=== PATIENT | female | born 1935 | race Caucasian/White ===

== ENCOUNTER → 2017-07-24 | Outpatient (CLI) | payer MEDICARE | END | disposition home or self-care (01) | LOC: CFH 08:03 | PROVIDERS: ATTEND Specialist | DX: N63.20 Unspecified lump in the left breast, unspecified quadrant (principal); N63.10 Unspecified lump in the right breast, unspecified quadrant; R92.8 Other abnormal and inconclusive findings on diagnostic imaging of breast; F02.80 Dementia in other diseases classified elsewhere, unspecified severity, without behavioral disturbance, psychotic disturbance, mood disturbance, and anxiety | CPT/HCPCS: 76642; 77066 ==

== ENCOUNTER → 2017-08-16 | Outpatient (CLI) | payer MEDICARE ==
[~2017-08-16] MED LIST: REGADENOSON 0.4 MG/5 ML SYRINGE ONE
== END | disposition home or self-care (01) ==
LOC: CFH 07:35
PROVIDERS: ATTEND Internal Medicine Cardiovascular Disease
DX: I10 Essential (primary) hypertension (principal); I25.10 Atherosclerotic heart disease of native coronary artery without angina pectoris
CPT/HCPCS: 78452; 93017; 93306; A9502; J2785

== ENCOUNTER → 2017-12-31 | Outpatient (CLI) | payer MEDICARE ==
[2017-12-31 12:49] LABS: BASOPHILS # (AUTO) 0.04 x10^3/uL (0-0.1); BASOPHILS % (AUTO) 0 % (0-1); EOSINOPHILS # (AUTO) 0.25 x10^3/uL (0-0.4); EOSINOPHILS % (AUTO) 2 % (1-7); LYMPHOCYTES # (AUTO) 1.92 x10^3/uL (1-3.4); LYMPHOCYTES % (AUTO) 16 % (22-44); MD NO; MEAN CORPUSCULAR HGB CONC 33.2 g/dL (32.4-35.8); MEAN CORPUSCULAR VOLUME 93.2 fL (80-100); MEAN PLATELET VOLUME 7.9 fL (7.4-10.4); MONOCYTES # (AUTO) 0.49 x10^3/uL (0.2-0.8); MONOCYTES % (AUTO) 4 % (2-9); NEUTROPHILS # (AUTO) 9.18 x10^3/uL (1.8-6.8); NEUTROPHILS % (AUTO) 77 % (42-75); PLATELET COUNT 344 x10^3/uL (130-400); RED BLOOD COUNT 4.22 x10^6/uL (3.82-5.3)
[2017-12-31 12:56] LABS: ALBUMIN 3.3 g/dL (3.4-5.0); ANION GAP 4 mmol/L (5-15); CALCIUM 8.7 mg/dL (8.5-10.1); CHLORIDE 108 mmol/L (98-107)
[2017-12-31 13:01] LABS: ALANINE AMINOTRANSFERASE 21 U/L (12-78); ALKALINE PHOSPHATASE 56 U/L (45-117); BILIRUBIN,TOTAL 0.5 mg/dL (0.2-1.0); CREATININE 0.75 mg/dL (0.55-1.02); TOTAL PROTEIN 6.6 g/dL (6.4-8.2)
== END | disposition home or self-care (01) ==
LOC: CFH 08:50
PROVIDERS: ATTEND Specialist
DX: G31.9 Degenerative disease of nervous system, unspecified (principal); G30.1 Alzheimer's disease with late onset; Z79.899 Other long term (current) drug therapy
CPT/HCPCS: 36415; 70450; 80053; 85025

== ENCOUNTER 2018-03-27 11:51 | Inpatient (IN) | payer MEDICARE ==
[~2018-03-27] VITALS: Ht 152.4 cm; Wt 57.3 kg
[2018-03-27] MEDS ORDERED: SODIUM CHLORIDE 0.9% 1,000ML IVBOLUS ONE (12:00)
[2018-03-27 12:19] LABS: BASOPHILS # (AUTO) 0.03 x10^3/uL (0-0.1); BASOPHILS % (AUTO) 0 % (0-1); EOSINOPHILS # (AUTO) 0.17 x10^3/uL (0-0.4); EOSINOPHILS % (AUTO) 2 % (1-7); LYMPHOCYTES # (AUTO) 1.53 x10^3/uL (1-3.4); LYMPHOCYTES % (AUTO) 15 % (22-44); MD NO; MEAN CORPUSCULAR HEMOGLOBIN 31.7 pg (27.0-34.8); MEAN CORPUSCULAR HGB CONC 33.2 g/dL (32.4-35.8); MEAN CORPUSCULAR VOLUME 95.5 fL (80-100); MEAN PLATELET VOLUME 7.2 fL (7.4-10.4); MONOCYTES # (AUTO) 0.36 x10^3/uL (0.2-0.8); MONOCYTES % (AUTO) 4 % (2-9); NEUTROPHILS % (AUTO) 79 % (42-75); PLATELET COUNT 352 x10^3/uL (130-400); RED BLOOD COUNT 4.08 x10^6/uL (3.82-5.3); RED CELL DISTRIBUTION WIDTH 14.7 % (9.6-15.2)
[2018-03-27] MEDS ORDERED: PLEASE ENTER ALLERGIES MC SCH (12:30)
[2018-03-27] MEDS ORDERED: PLEASE ENTER HEIGHT AND WEIGHT MC SCH (12:30)
[2018-03-27 12:32] LABS: ALBUMIN 2.9 g/dL (3.4-5.0); ANION GAP 6 mmol/L (5-15); CALCIUM 8.8 mg/dL (8.5-10.1); CHLORIDE 109 mmol/L (98-107); CREATININE 0.73 mg/dL (0.55-1.02)
[2018-03-27 12:35] LABS: TROPONIN I < 0.015 ng/mL (0.000-0.045)
[2018-03-27] MEDS ORDERED: ENALAPRILAT 1.25 MG/ML, 2ML IVPush PRN (14:30)
[2018-03-27] MEDS ORDERED: GLUCAGON 1 MG IM PRN (14:30)
[2018-03-27] MEDS ORDERED: ENOXAPARIN 40 MG/0.4 ML SQ SCH (14:30)
[2018-03-27] MEDS ORDERED: ACETAMINOPHEN 325 MG TABLET PO PRN (14:30)
[2018-03-27] MEDS ORDERED: DEXTROSE 4 GM TAB.CHEW PO PRN (14:30)
[2018-03-27] MEDS ORDERED: DEXTROSE 50%, 50ML SYRINGE IVPush PRN (14:30)
[2018-03-27] MEDS ORDERED: DOCUSATE 100 MG CAPSULE PO PRN (14:30)
[2018-03-27] MEDS ORDERED: ONDANSETRON ODT 4 MG PO PRN (14:30)
[2018-03-27] MEDS ORDERED: ONDANSETRON 2MG/ML, 2ML IVPush PRN (14:30)
[2018-03-27 14:42] LABS: THYROID STIMULATING HORMONE 4.1 mIU/L (0.358-3.740)
[2018-03-27 15:07] VITALS: BP 164/73
[2018-03-27 16:21] LABS: CULTURE INDICATED? YES; MICROSCOPIC AUTO
[2018-03-27] MEDS ORDERED: ERGOCALCIFEROL 50,000 UNIT CAPSULE PO ONE (17:00)
[2018-03-27] MEDS ORDERED: METHOTREXATE 2.5 MG TABLET PO SCH (17:00)
[2018-03-27] MEDS ORDERED: METHOTREXATE 2.5 MG TABLET PO ONE (17:30)
[2018-03-27] MEDS ORDERED: METOPROLOL TARTRATE 50 MG TABLET PO SCH (18:00)
[2018-03-27 18:13] LABS: TROPONIN I < 0.015 ng/mL (0.000-0.045)
[2018-03-27 19:02] VITALS: BP 165/77
[2018-03-27] MEDS: D5%-0.45% NACL 1,000 ML IV SCH (20:07)
[2018-03-27] MEDS: SODIUM CHLORIDE FLUSH 10ML SYR IVF SCH (20:08)
[2018-03-27] MEDS ORDERED: HYDROcodone/APAP 5/325 TABLET PO ONE (21:00)
[2018-03-27] MEDS ORDERED: TRAZODONE 150MG TABLET PO SCH (21:00)
[2018-03-27] MEDS ORDERED: ATORVASTATIN 20 MG TABLET PO SCH (21:00)
[2018-03-27] MEDS ORDERED: OMNIPAQUE 350 MG/ML, 100ML BOTTLE ONE (21:38)
[2018-03-27] MEDS ORDERED: HEPARIN 25,000 UNITS/500ML PMX 500 ML IV PRN (23:30)
[2018-03-27] MEDS ORDERED: HEPARIN 5,000 UNITS/ML, 1ML IV ONE (23:30)
[2018-03-27] MEDS ORDERED: HEPARIN 5,000 UNITS/ML, 1ML IV PRN (23:30)
[2018-03-28] MEDS ORDERED: TRAZODONE 50MG TABLET PO ONE
[2018-03-28] MEDS ORDERED: PRED5TAB19 PO (01:07)
[2018-03-28] MEDS ORDERED: METO50TA6 PO (01:11)
[2018-03-28] MEDS ORDERED: ATOR20TA9 PO (01:12)
[2018-03-28] MEDS ORDERED: METH2.5T PO (01:14)
[2018-03-28] MEDS ORDERED: HYDR-3240 PO (01:15)
[2018-03-28] MEDS ORDERED: CHOL-1 PO (01:18)
[2018-03-28] MEDS ORDERED: ALEN70TA3 PO (01:19)
[2018-03-28] MEDS ORDERED: TRAZ150T62 PO (01:23)
[2018-03-28] MEDS ORDERED: DONE10TA56 PO (01:23)
[2018-03-28] MEDS ORDERED: OLAN2.5T10 PO (01:23)
[2018-03-28 03:38] VITALS: BP 159/78
[2018-03-28 05:52] LABS: BASOPHILS # (AUTO) 0.06 x10^3/uL (0-0.1); BASOPHILS % (AUTO) 1 % (0-1); EOSINOPHILS # (AUTO) 0.26 x10^3/uL (0-0.4); EOSINOPHILS % (AUTO) 3 % (1-7); LYMPHOCYTES # (AUTO) 3.07 x10^3/uL (1-3.4); LYMPHOCYTES % (AUTO) 34 % (22-44); MD NO; MEAN CORPUSCULAR HEMOGLOBIN 31.6 pg (27.0-34.8); MEAN CORPUSCULAR HGB CONC 33.6 g/dL (32.4-35.8); MEAN CORPUSCULAR VOLUME 94.1 fL (80-100); MEAN PLATELET VOLUME 7.2 fL (7.4-10.4); MONOCYTES # (AUTO) 0.52 x10^3/uL (0.2-0.8); MONOCYTES % (AUTO) 6 % (2-9); NEUTROPHILS # (AUTO) 5.12 x10^3/uL (1.8-6.8); NEUTROPHILS % (AUTO) 57 % (42-75); PLATELET COUNT 329 x10^3/uL (130-400); RED BLOOD COUNT 3.95 x10^6/uL (3.82-5.3)
[2018-03-28 06:03] LABS: CHLORIDE 110 mmol/L (98-107)
[2018-03-28 06:04] LABS: ALBUMIN 2.7 g/dL (3.4-5.0); ANION GAP 10 mmol/L (5-15); CALCIUM 8.5 mg/dL (8.5-10.1)
[2018-03-28 06:07] LABS: ALANINE AMINOTRANSFERASE 16 U/L (12-78); ALKALINE PHOSPHATASE 60 U/L (45-117); BILIRUBIN,TOTAL 0.5 mg/dL (0.2-1.0); CHOL/HDL RATIO 3.4; CHOLESTEROL, TOTAL 148 mg/dL (140-239); HDL CHOL % 29 % (28-40); HDL CHOLESTEROL (DIRECT) 43 mg/dL (40-60); LDL CHOLESTEROL,CALCULATED 81 mg/dL (54-169); LDL/HDL RATIO 1.9 (0.5-3.0); TOTAL PROTEIN 6.2 g/dL (6.4-8.2); TRIGLYCERIDES 120 mg/dL (50-200); VLDL CHOLESTEROL 24 mg/dL (0-25)
[2018-03-28] MEDS ORDERED: DONEPEZIL 10 MG TABLET PO SCH (09:00)
[2018-03-28] MEDS ORDERED: METOPROLOL TARTRATE 50 MG TABLET PO SCH (09:00)
[2018-03-28] MEDS ORDERED: OLANZAPINE 2.5 MG TABLET PO SCH (09:00)
[2018-03-28] MEDS: SODIUM CHLORIDE FLUSH 10ML SYR IVF SCH (09:00)
[2018-03-28 09:19] VITALS: BP 151/71
[2018-03-28] MEDS: D5%-0.45% NACL 1,000 ML IV SCH (09:23)
[2018-03-28] MEDS ORDERED: ALENDRONATE SODIUM 70 MG PO SCH (10:00)
[2018-03-28] MEDS ORDERED: METHOTREXATE 2.5 MG TABLET PO SCH (10:00)
[2018-03-28] MEDS ORDERED: ERGOCALCIFEROL 50,000 UNIT CAPSULE PO SCH (10:00)
[2018-03-28] MEDS ORDERED: HYDROcodone/APAP 5/325 TABLET PO PRN (10:00)
[2018-03-28] MEDS ORDERED: CHOLECALCIFEROL MC SCH ×2 (10:30)
[2018-03-28 11:02] LABS: FREE T4 (FREE THYROXINE) 1.01 ng/dL (0.76-1.46); THYROID STIMULATING HORMONE 5.03 mIU/L (0.358-3.740)
[2018-03-28 12:25] VITALS: BP 148/80
[2018-03-28] MEDS ORDERED: SERT50TA5 PO (13:09)
[2018-03-28] MEDS ORDERED: MIRT45TA6 PO (13:09)
[2018-03-28] MEDS ORDERED: MIRTAZAPINE 15 MG TABLET PO SCH ×2 (13:30→21:00)
[2018-03-28] MEDS ORDERED: TRAZODONE 50MG TABLET ONE (13:55)
[2018-03-28] MEDS ORDERED: MIRTAZAPINE 15 MG TABLET ONE (13:56)
[2018-03-28] MEDS ORDERED: FAMOTIDINE 20 MG TABLET PO PRN (14:00)
[2018-03-28] MEDS ORDERED: HALOPERIDOL 0.5 MG TABLET PO PRN (15:30)
[2018-03-28] MEDS ORDERED: TRAZODONE 50MG TABLET PO SCH (16:00)
[2018-03-28] MEDS ORDERED: METO25TA35 PO (17:07)
[2018-03-28] MEDS ORDERED: APIX5TAB PO (17:07)
[2018-03-28] MEDS ORDERED: METOPROLOL TARTRATE 25 MG TABLET PO SCH (18:00)
[2018-03-28] MEDS ORDERED: SERTRALINE 50MG TABLET PO SCH (21:00)
[2018-03-28] MEDS ORDERED: TRAZODONE 150MG TABLET PO SCH (21:00)
[2018-03-28] MEDS ORDERED: APIXABAN 5 MG TABLET PO SCH (21:00)
[2018-03-28] MEDS ORDERED: DONEPEZIL HCL 10 MG PO SCH (21:00)
[2018-03-28] MEDS ORDERED: TEMPLATE NON-FORMULARY MED. (Atorvastatin Calcium** 20 MG) PO SCH (21:00)
[2018-03-29] MEDS ORDERED: MULTIVITAMIN 1 TABLET PO SCH (09:00)
[2018-03-29] MEDS ORDERED: OLANZAPINE 2.5 MG PO SCH (09:00)
[2018-04-03] MEDS ORDERED: ALENDRONATE 70 MG TABLET PO SCH (06:30)
== END 2018-03-28 17:56 | disposition home or self-care (01) | DRG 175 ==
LOC: ED 13:04 → UNDOADMOB 13:05 → INTOOBSV 13:05 → EDIP 13:05 → ED 13:11 → OBSVTOIN 14:10 → EDIP 14:10 → 5SO 15:04
PROVIDERS: ADMIT Internal Medicine; ATTEND Internal Medicine
DX: I26.99 Other pulmonary embolism without acute cor pulmonale (principal); J96.01 Acute respiratory failure with hypoxia; F02.81 Dementia in other diseases classified elsewhere, unspecified severity, with behavioral disturbance; G90.8 Other disorders of autonomic nervous system; R00.1 Bradycardia, unspecified; I25.10 Atherosclerotic heart disease of native coronary artery without angina pectoris; Z95.5 Presence of coronary angioplasty implant and graft; K30 Functional dyspepsia; M85.80 Other specified disorders of bone density and structure, unspecified site; I10 Essential (primary) hypertension; L40.50 Arthropathic psoriasis, unspecified; I77.819 Aortic ectasia, unspecified site; G47.00 Insomnia, unspecified; G89.29 Other chronic pain; R26.81 Unsteadiness on feet; E86.0 Dehydration; G30.1 Alzheimer's disease with late onset; Z82.49 Family history of ischemic heart disease and other diseases of the circulatory system; Z84.89 Family history of other specified conditions; Z88.6 Allergy status to analgesic agent
CPT/HCPCS: 36415; 71045; 71275; 74018; 80048; 80053; 80061; 81001; 82040; 83735; 84439; 84443; 84484; 85025; 85379; 85520; 87086; 93005; 93306; J1644; J1650; J8610; Q9967; G0378; J7030

== ENCOUNTER → 2018-10-02 | Outpatient (CLI) | payer MEDICARE ==
[~2018-10-02] MED LIST changes: +ALEN70TA3 PO; +APIX5TAB PO; +ATOR20TA37 PO; +CHOL-1 PO; +DONE10TA56 PO; +HYDR-3240 PO; +METH2.5T PO; +METO25TA35 PO; +METO50TA6 PO; +MIRT45TA57 PO; +OLAN2.5T10 PO; +OMNIPAQUE 350 MG/ML, 100ML BOTTLE ONE; +PRED5TAB19 PO; -REGADENOSON 0.4 MG/5 ML SYRINGE ONE; +SERT50TA28 PO; +TRAZ150T62 PO
== END | disposition home or self-care (01) ==
LOC: CFH 13:07
PROVIDERS: ATTEND Family Medicine
DX: I77.819 Aortic ectasia, unspecified site (principal); L98.8 Other specified disorders of the skin and subcutaneous tissue
CPT/HCPCS: 71275; Q9967

== ENCOUNTER 2018-10-29 08:34 | Emergency (ER) | payer MEDICARE ==
[~2018-10-29] VITALS: Ht 160 cm; Wt 51.1 kg
[~2018-10-29 08:34] MED LIST changes: -OMNIPAQUE 350 MG/ML, 100ML BOTTLE ONE
--- NOTE | 2018-10-29 09:04 | NUR ---
Pt returned to room from [facility] on [facility] with spouse at bedside. NADN. Both bed rails up for safety measures.
[2018-10-29 09:05] LABS: BASOPHILS # (AUTO) 0.03 x10^3/uL (0-0.1); BASOPHILS % (AUTO) 0 % (0-1); EOSINOPHILS # (AUTO) 0.11 x10^3/uL (0-0.4); EOSINOPHILS % (AUTO) 1 % (1-7); LYMPHOCYTES # (AUTO) 1.13 x10^3/uL (1-3.4); LYMPHOCYTES % (AUTO) 14 % (22-44); MD NO; MEAN CORPUSCULAR HEMOGLOBIN 30.9 pg (27.0-34.8); MEAN CORPUSCULAR HGB CONC 32.6 g/dL (32.4-35.8); MEAN CORPUSCULAR VOLUME 94.8 fL (80-100); MEAN PLATELET VOLUME 7.5 fL (7.4-10.4); MONOCYTES # (AUTO) 0.56 x10^3/uL (0.2-0.8); MONOCYTES % (AUTO) 7 % (2-9); NEUTROPHILS # (AUTO) 6.11 x10^3/uL (1.8-6.8); NEUTROPHILS % (AUTO) 77 % (42-75); PLATELET COUNT 284 x10^3/uL (130-400); RED BLOOD COUNT 3.66 x10^6/uL (3.82-5.3); RED CELL DISTRIBUTION WIDTH 15.3 % (9.6-15.2)
[2018-10-29 09:17] LABS: ALBUMIN 2.9 g/dL (3.4-5.0); CALCIUM 8.6 mg/dL (8.5-10.1); CREATININE 0.83 mg/dL (0.55-1.02)
[2018-10-29] MEDS ORDERED: Acetaminophen PO (09:20)
[2018-10-29] MEDS ORDERED: PRED5TAB PO (09:20)
[2018-10-29] MEDS ORDERED: ALEN70TA6 PO (09:20)
[2018-10-29] MEDS ORDERED: MIRT45TA61 PO (09:20)
[2018-10-29] MEDS ORDERED: metoprolol PO (09:20)
[2018-10-29] MEDS ORDERED: TRAZODONE (09:20)
[2018-10-29] MEDS ORDERED: MULT-90 PO (09:20)
[2018-10-29] MEDS ORDERED: PRED1TAB PO (09:20)
[2018-10-29] MEDS ORDERED: LEVO25TA4 PO (09:20)
[2018-10-29] MEDS ORDERED: Trazadone PO (09:20)
[2018-10-29 09:21] LABS: TROPONIN I < 0.015 ng/mL (0.000-0.045)
--- NOTE | 2018-10-29 09:30 | NUR ---
Pt transported on gurney to imaging. LAVERNE. Pt's spouse followed pt at bedside.
[2018-10-29 09:32] LABS: ANION GAP 5 mmol/L (5-15)
[2018-10-29 09:33] LABS: CHLORIDE 112 mmol/L (98-107)
--- NOTE | 2018-10-29 09:34 | NUR ---
LATE NOTE BENNY FOR 0841: Pt presents to ED by EMS from home after pt had syncopal event without fall or trauma wittnessed by pt's spouse. Pt is AOX1 at baseline with history of dementia. Pt resting on gurney with NADN. Pt connected to NIBP, continous pulse ox, and advertising account representative. Both bedrails up for safety measures. Call light within reach. Pt recieved 300 mL of NS prior to arrival from EMS for hypotension witnessed by EMS at 77/40 to 97/50. Per EMS, "patient's spouse said he noticed she had a non-productive cough starting last night." Pt denies pain, sob, cp, n/v/d, dizziness, light headedness, or trauma. Pt unable to recall why she is at the ED. Pt alert, awake, responsive to voice, and oriented to self. Per EMS, this is her baseline. Pt has 18 g PIV in right forearm placed prior to arrival to ED.
[2018-10-29 09:46] LABS: FREE T4 (FREE THYROXINE) 0.99 ng/dL (0.76-1.46)
--- NOTE | 2018-10-29 09:48 | NUR ---
Pt spouse states, "usually after she takes her morning meds like her Trazadone for anxiety, she falls asleep. I wonder if she fell asleep while standing up. She did fall and hit her head on a metal office chair. She was standing up and fell backwards." Pt has no observable trauma to head, face, or scalp. No lacerations or skin tears observed. No ecchymosis observed. Discussed with pt and spouse about toileting at bedside in commode. Pt and spouse state verbal understanding.
[2018-10-29 10:17] LABS: MICROSCOPIC NOT IND
--- NOTE | 2018-10-29 10:18 | NUR ---
LÁZARO RN: PT CURRENTLY RESTING [facility]. NAD NOTED. SKIN PWD. RESP EVEN AND UNLABORED. AT BEDSIDE. PT AND AWARE WE ARE WAITING FOR LAB RESULTS. PT DENIES PAIN/NEEDS AT THIS TIME. PT ON CONT BP, CARDIAC AND O2 MONITORS. CALL LIGHT WITHIN REACH.
[2018-10-29 10:26] LABS: CULTURE INDICATED? NO
--- NOTE | 2018-10-29 11:18 | NUR ---
LÁZARO RN: PT CURRENTLY RESTING IN [facility]. NAD NOTED AT THIS TIME. SKIN PWD. RESP EVEN AND EQUAL. AT BEDSIDE. PT ON CONT BP, CARDIAC AND O2 MONITORS. CALL LIGHT WITHIN REACH. WILL CONT TO MONITOR PT.
--- NOTE | 2018-10-29 11:55 | NUR ---
Provided report to STACY Hand. All questions answered. Peace silverman care of pt.
--- NOTE | 2018-10-29 11:57 | NUR ---
RECEIVED REPORT FROM LOUANN KUMAR. DR. IRWIN AT BEDSIDE FOR RECHECK, DISCUSSING DISCHARGE POC WITH PT AND PT SPOUSE. AWAITING CHART AND DISCHARGE PAPERS FROM [facility].
[2018-10-29 12:35] VITALS: BP 127/67
== END 2018-10-29 12:49 | disposition home or self-care (01) ==
LOC: ED 10:43
DX: R55 Syncope and collapse (principal); I10 Essential (primary) hypertension; I25.10 Atherosclerotic heart disease of native coronary artery without angina pectoris
CPT/HCPCS: 36415; 70450; 71046; 80048; 81003; 82040; 84439; 84443; 84484; 85025; 93005; 99284

== ENCOUNTER 2020-01-15 20:42 | Inpatient (IN) | payer MEDICARE ==
[~2020-01-15] VITALS: Ht 149.9 cm; Wt 56.1 kg
[~2020-01-15 20:42] MED LIST changes: +ALEN70TA6 PO; +Acetaminophen PO; +LEVO25TA4 PO; +MIRT45TA61 PO; +MULT-90 PO; +PRED1TAB19 PO; +PRED5TAB PO; +TRAZODONE; +Trazadone PO; +metoprolol PO
[2020-01-15] MEDS ORDERED: AMIODARONE 50 MG/ML, 3ML ONE (20:57)
[2020-01-15] MEDS ORDERED: FILTER 0.22 MICRON IV PRN (21:00)
[2020-01-15] MEDS ORDERED: AMIODARONE 450 MG in DEXTROSE 5% 241 ML IV PRN (21:00)
[2020-01-15] MEDS ORDERED: SODIUM CHLORIDE FLUSH 10ML SYR IVF ONE (21:00)
--- NOTE | 2020-01-15 21:03 | NUR ---
Pt BIB [facility] for bigeminy and approx 30 sec run of Vtach. reports that pt was at [employer] earlier when pt began having chest pain, SOB, and stomach pains. called ambulance from home. Pt arrives to ED A/O X 1, which is baseline. Pt does not appear in distress at this time. MD at bedside, EKG complete. Placed on monitor and Zoll. Pt does not report CP or SOB at this time, calm and cooperative. VSWNL. Pharmacy notified of need for Amio gtt.
[2020-01-15 21:12] LABS: BASOPHILS # (AUTO) 0.03 x10^3/uL (0-0.1); BASOPHILS % (AUTO) 0 % (0-1); EOSINOPHILS # (AUTO) 0.15 x10^3/uL (0-0.4); EOSINOPHILS % (AUTO) 2 % (1-7); LYMPHOCYTES # (AUTO) 1.81 x10^3/uL (1-3.4); LYMPHOCYTES % (AUTO) 22 % (22-44); MD NO; MEAN CORPUSCULAR HEMOGLOBIN 30.9 pg (27.0-34.8); MEAN CORPUSCULAR HGB CONC 33.2 g/dL (32.4-35.8); MEAN PLATELET VOLUME 7.3 fL (7.4-10.4); MONOCYTES # (AUTO) 0.61 x10^3/uL (0.2-0.8); MONOCYTES % (AUTO) 7 % (2-9); NEUTROPHILS # (AUTO) 5.81 x10^3/uL (1.8-6.8); NEUTROPHILS % (AUTO) 69 % (42-75); PLATELET COUNT 312 x10^3/uL (130-400); RED BLOOD COUNT 4.19 x10^6/uL (3.82-5.3); RED CELL DISTRIBUTION WIDTH 14.3 % (9.6-15.2)
--- NOTE | 2020-01-15 21:20 | NUR ---
Amio gtt initiated with filter. Rate: 1mg/min 33.33ml/hr
[2020-01-15 21:27] LABS: ALANINE AMINOTRANSFERASE 14 U/L (12-78); ANION GAP 9 mmol/L (5-15); CALCIUM 8.5 mg/dL (8.5-10.1); CHLORIDE 109 mmol/L (98-107); CREATININE 0.74 mg/dL (0.55-1.02)
[2020-01-15 21:31] LABS: ALKALINE PHOSPHATASE 61 U/L (45-117); BILIRUBIN,TOTAL 0.8 mg/dL (0.2-1.0); TOTAL PROTEIN 6.8 g/dL (6.4-8.2)
--- NOTE | 2020-01-15 21:34 | NUR ---
LAB REPORTS CRITICAL TROP 0.471, AWARE
[2020-01-15 21:35] LABS: TROPONIN I 0.472 ng/mL (0.000-0.045)
--- NOTE | 2020-01-15 21:41 | NUR ---
Pt becoming more anxious, states that she did not take her Trazadone this afternoon. Dr Platt made aware.
[2020-01-15] MEDS ORDERED: TRAZODONE 50MG TABLET PO STA (21:43)
[2020-01-15] MEDS ORDERED: TRAZODONE 50MG TABLET ONE (21:48)
--- NOTE | 2020-01-15 21:52 | NUR ---
Pt given Trazadone
--- NOTE | 2020-01-15 21:52 | NUR ---
received report from STACY Mckeon.
[2020-01-15] MEDS ORDERED: TRAZODONE 50MG TABLET PO ONE (22:00)
--- NOTE | 2020-01-15 22:00 | NUR ---
Report provided to STACY Coronel
--- NOTE | 2020-01-15 22:05 | NUR ---
Report provided to STACY Dunaway
[2020-01-15] MEDS: HEPARIN 5,000 UNITS/ML, 1ML SQ SCH (22:30)
[2020-01-15] MEDS ORDERED: METHOTREXATE 2.5 MG TABLET PO SCH (22:30)
[2020-01-15] MEDS ORDERED: ERGOCALCIFEROL 50,000 UNIT CAPSULE PO SCH (22:30)
[2020-01-15] MEDS ORDERED: POLYETHYLENE GLYCOL 17 GM PACKET PO PRN (22:30)
[2020-01-15] MEDS ORDERED: POTASSIUM CHLORIDE 20 MEQ PACKET PO ONE (22:30)
[2020-01-15] MEDS: SODIUM CHLORIDE FLUSH 10ML SYR IVF SCH (22:30)
[2020-01-15] MEDS ORDERED: TRAZODONE 50MG TABLET PO PRN (22:30)
[2020-01-15] MEDS ORDERED: ATORVASTATIN 20 MG TABLET PO SCH (22:30)
[2020-01-15] MEDS ORDERED: ONDANSETRON 2MG/ML, 2ML IVPush PRN (22:30)
[2020-01-15] MEDS ORDERED: BISACODYL 10 MG SUPP PR PRN (22:30)
[2020-01-15 22:57] VITALS: BP 134/92
[2020-01-15] MEDS ORDERED: PREDNISONE MC SCH (23:00)
[2020-01-15] MEDS ORDERED: METHOTREXATE MC SCH (23:00)
[2020-01-15] MEDS: MIRTAZAPINE 15 MG TABLET PO SCH (23:15)
[2020-01-15] MEDS: SERTRALINE 50MG TABLET PO SCH (23:16)
[2020-01-15] MEDS: METOPROLOL TARTRATE 50 MG TAB PO SCH (23:16)
[2020-01-15] MEDS: ACETAMINOPHEN 325 MG TABLET PO PRN (23:17)
[2020-01-16] MEDS ORDERED: HALOPERIDOL 5 MG TABLET PO ONE
[2020-01-16 03:46] LABS: ANION GAP 7 mmol/L (5-15); CALCIUM 8.4 mg/dL (8.5-10.1); CHLORIDE 111 mmol/L (98-107)
[2020-01-16 03:53] LABS: CHOL/HDL RATIO 3.9; CHOLESTEROL, TOTAL 151 mg/dL (140-239); CREATININE 0.72 mg/dL (0.55-1.02); HDL CHOL % 26 % (28-40); HDL CHOLESTEROL (DIRECT) 39 mg/dL (40-60); LDL CHOLESTEROL,CALCULATED 81 mg/dL (54-169); LDL/HDL RATIO 2.1 (0.5-3.0); TRIGLYCERIDES 157 mg/dL (50-200); TROPONIN I 0.645 ng/mL (0.000-0.045); VLDL CHOLESTEROL 31 mg/dL (0-25)
[2020-01-16] MEDS ORDERED: PREDNISONE MC SCH (04:33)
[2020-01-16] MEDS ORDERED: AMIODARONE 450 MG in DEXTROSE 5% 241 ML IV PRN (05:00)
[2020-01-16] MEDS: AMIODARONE MC SCH ×2 (05:00→13:00)
[2020-01-16] MEDS ORDERED: FILTER 0.22 MICRON IV PRN (05:00)
[2020-01-16] MEDS: HEPARIN 5,000 UNITS/ML, 1ML SQ SCH ×3 (06:00→22:30)
[2020-01-16] MEDS ORDERED: ALENDRONATE 70 MG TABLET PO SCH (06:30)
[2020-01-16] MEDS: SENNA/DOCUSATE TABLET PO SCH (08:35)
[2020-01-16] MEDS: METOPROLOL TARTRATE 50 MG TAB PO SCH ×2 (09:00→21:00)
[2020-01-16 09:32] VITALS: BP 106/69
[2020-01-16] MEDS: LEVOTHYROXINE 25 MCG TABLET PO SCH (09:50)
[2020-01-16] MEDS: CLOPIDOGREL 75 MG TABLET PO SCH (09:51)
[2020-01-16] MEDS: MIRTAZAPINE 15 MG TABLET PO SCH ×2 (09:53→21:00)
[2020-01-16] MEDS: SODIUM CHLORIDE FLUSH 10ML SYR IVF SCH ×2 (09:54→21:00)
[2020-01-16 10:00] VITALS: BP 90/60
[2020-01-16 15:00] VITALS: BP 117/84
[2020-01-16 18:37] VITALS: BP 127/80
[2020-01-16] MEDS: ATORVASTATIN 40 MG TABLET PO SCH (21:00)
[2020-01-16] MEDS: SERTRALINE 50MG TABLET PO SCH (21:00)
[2020-01-17] VITALS (7 sets, daily range): BP systolic 71–126; BP diastolic 49–80
[2020-01-17 05:10] LABS: ANION GAP 7 mmol/L (5-15); CALCIUM 8.5 mg/dL (8.5-10.1); CHLORIDE 113 mmol/L (98-107)
[2020-01-17 05:11] LABS: CREATININE 0.65 mg/dL (0.55-1.02)
[2020-01-17] MEDS: HEPARIN 5,000 UNITS/ML, 1ML SQ SCH ×2 (06:30→16:53)
[2020-01-17] MEDS: LEVOTHYROXINE 25 MCG TABLET PO SCH (09:00)
[2020-01-17] MEDS: MIRTAZAPINE 15 MG TABLET PO SCH ×2 (09:00→20:38)
[2020-01-17] MEDS: SODIUM CHLORIDE FLUSH 10ML SYR IVF SCH ×2 (09:00→20:38)
[2020-01-17] MEDS: SENNA/DOCUSATE TABLET PO SCH (09:00)
[2020-01-17] MEDS: CLOPIDOGREL 75 MG TABLET PO SCH (09:00)
[2020-01-17] MEDS ORDERED: AMIODARONE 150 MG in DEXTROSE 5% 100 ML IV ONE ×2 (09:13→10:30)
[2020-01-17] MEDS: AMIODARONE 450 MG in DEXTROSE 5% 241 ML IV PRN ×2 (09:27→17:24)
[2020-01-17] MEDS: METOPROLOL TARTRATE 50 MG TAB PO SCH ×2 (09:29→20:38)
[2020-01-17] MEDS ORDERED: FILTER 0.22 MICRON IV ONE (09:30)
[2020-01-17] MEDS ORDERED: SODIUM CHLORIDE 0.9%, 250ML IVBOLUS ONE ×3 (10:00→12:00)
[2020-01-17] MEDS ORDERED: DIGOXIN 0.25 MG/ML, 2ML ONE (11:20)
[2020-01-17] MEDS ORDERED: DIGOXIN 0.25 MG/ML, 2ML IVPush SCH (11:30)
[2020-01-17] MEDS ORDERED: AMIODARONE 150 MG in DEXTROSE 5% 100 ML IV STA (11:39)
[2020-01-17] MEDS: ATORVASTATIN 40 MG TABLET PO SCH (20:37)
[2020-01-17] MEDS: SERTRALINE 50MG TABLET PO SCH (20:37)
[2020-01-17] MEDS: ACETAMINOPHEN 325 MG TABLET PO PRN (20:47)
[2020-01-18 05:43] LABS: BASOPHILS # (AUTO) 0.03 x10^3/uL (0-0.1); BASOPHILS % (AUTO) 0 % (0-1); EOSINOPHILS # (AUTO) 0.03 x10^3/uL (0-0.4); EOSINOPHILS % (AUTO) 0 % (1-7); LYMPHOCYTES # (AUTO) 0.94 x10^3/uL (1-3.4); LYMPHOCYTES % (AUTO) 10 % (22-44); MD NO; MEAN CORPUSCULAR HEMOGLOBIN 30.4 pg (27.0-34.8); MEAN CORPUSCULAR HGB CONC 32.1 g/dL (32.4-35.8); MEAN PLATELET VOLUME 8.2 fL (7.4-10.4); MONOCYTES # (AUTO) 0.78 x10^3/uL (0.2-0.8); MONOCYTES % (AUTO) 8 % (2-9); NEUTROPHILS # (AUTO) 7.54 x10^3/uL (1.8-6.8); NEUTROPHILS % (AUTO) 81 % (42-75); PLATELET COUNT 270 x10^3/uL (130-400); RED BLOOD COUNT 4.11 x10^6/uL (3.82-5.3); RED CELL DISTRIBUTION WIDTH 14.4 % (9.6-15.2)
[2020-01-18 05:54] LABS: ANION GAP 9 mmol/L (5-15); CALCIUM 8.2 mg/dL (8.5-10.1); CHLORIDE 110 mmol/L (98-107)
[2020-01-18 06:35] VITALS: BP 97/58
[2020-01-18] MEDS: SENNA/DOCUSATE TABLET PO SCH (09:34)
[2020-01-18] MEDS: MIRTAZAPINE 15 MG TABLET PO SCH (09:34)
[2020-01-18] MEDS: LEVOTHYROXINE 25 MCG TABLET PO SCH (09:34)
[2020-01-18] MEDS: CLOPIDOGREL 75 MG TABLET PO SCH (09:35)
[2020-01-18] MEDS: METOPROLOL TARTRATE 50 MG TAB PO SCH (09:35)
[2020-01-18] MEDS: SODIUM CHLORIDE FLUSH 10ML SYR IVF SCH (09:35)
[2020-01-18] MEDS: HEPARIN 5,000 UNITS/ML, 1ML SQ SCH (09:36)
[2020-01-18 12:30] VITALS: BP 102/68
[2020-01-18] MEDS ORDERED: AMIO200T42 PO ×2 (12:51)
[2020-01-19] MEDS ORDERED: METHOTREXATE 2.5 MG TABLET PO SCH (09:00)
[2020-01-19] MEDS ORDERED: AMIODARONE 200 MG TABLET PO SCH (09:00)
== END 2020-01-18 15:21 | disposition hospice, home (50) | DRG 281 ==
LOC: ED 21:33 → EDIP 21:54 → 5SO 22:20
PROVIDERS: ADMIT Internal Medicine; ATTEND Internal Medicine
DX: I21.4 Non-ST elevation (NSTEMI) myocardial infarction (principal); I47.2 Ventricular tachycardia; E87.6 Hypokalemia; F03.90 Unspecified dementia, unspecified severity, without behavioral disturbance, psychotic disturbance, mood disturbance, and anxiety; I50.9 Heart failure, unspecified; I11.0 Hypertensive heart disease with heart failure; E03.9 Hypothyroidism, unspecified; L40.50 Arthropathic psoriasis, unspecified; I25.10 Atherosclerotic heart disease of native coronary artery without angina pectoris; Z51.5 Encounter for palliative care; Z66 Do not resuscitate; I95.9 Hypotension, unspecified; I48.91 Unspecified atrial fibrillation; M81.0 Age-related osteoporosis without current pathological fracture; I08.2 Rheumatic disorders of both aortic and tricuspid valves; R10.10 Upper abdominal pain, unspecified; Z82.49 Family history of ischemic heart disease and other diseases of the circulatory system; Z86.711 Personal history of pulmonary embolism; Z88.6 Allergy status to analgesic agent; Z95.5 Presence of coronary angioplasty implant and graft; Z79.899 Other long term (current) drug therapy
CPT/HCPCS: 36415; 71045; 80048; 80053; 80061; 83605; 83735; 84484; 85025; 93005; 93306; 96374; G0378; J1644; J2405; J7060; J0282; J1160; J7050; J7512